=== PATIENT | female | born 1990 | race Caucasian/White ===

== ENCOUNTER 2018-02-24 19:45 | Inpatient (IN) | payer OTHER ==
[2018-02-24] MEDS ORDERED: OXYTOCIN/RINGERS LACTATE 1,000 ML IV PRN (22:57)
[2018-02-24] MEDS ORDERED: AMMONIA AROMATIC 1 EACH AMP IH PRN (22:57)
[2018-02-24] MEDS ORDERED: OLIVE OIL 118 ML BTL MISC PRN (22:57)
[2018-02-24] MEDS ORDERED: MISOPROSTOL 200 MCG TAB PO PRN (22:57)
[2018-02-24] MEDS ORDERED: LIDOCAINE 1% 300 MG/30 ML SDV SC PRN (22:57)
[2018-02-24] MEDS ORDERED: LR 1,000 ML IV PRN (22:57)
[2018-02-24] MEDS ORDERED: EPSOM SALT 454 GM TP PRN (22:57)
[2018-02-24] MEDS ORDERED: TERBUTALINE SULFATE 1 MG/ML VIAL IV PRN (22:57)
[2018-02-24] MEDS ORDERED: IBUPROFEN 600 MG TAB PO PRN (22:57)
[2018-02-24] MEDS ORDERED: MISOPROSTOL 200 MCG TAB ONE (23:29)
[2018-02-24] MEDS ORDERED: AMMONIA AROMATIC 1 EACH AMP IH ONE (23:29)
[2018-02-24] MEDS ORDERED: OXYTOCIN 10 UNIT/ML VIAL ONE (23:29)
[2018-02-24] MEDS ORDERED: OLIVE OIL 118 ML BTL ONE (23:29)
[2018-02-24] MEDS ORDERED: LIDOCAINE 1% 300 MG/30 ML SDV ONE (23:29)
[2018-02-24] MEDS ORDERED: TERBUTALINE SULFATE 1 MG/ML VIAL ONE (23:29)
[2018-02-25 00:10] LABS: PLATELET COUNT 217 10^3/uL (150-400)
--- NOTE | 2018-02-25 01:58 | PDGENHP ---
History and Physical - Chief Complaint contractions - History of Present Illness 27 G1 at 40w3d by LMP c/w 10 week US, with onset of contractions around 1700. No LOF, no VB, no ssx PIH. Desires natural childbirth. FOC: Ariel, and pt's mother, from [facility] is also here. has been uncomplicated. care with [facility]. 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 CV - RRR chest - CTAB abd - gravid, soft, fundus NT when not stephen ext - trace BLE edema, no calf tenderness SVE on arrival was 3/80/-2 at 2050, then at 2300 was 4.5/90/-2. Started using nitrous On my exam at 0130 6/90/-1 FHR 120 reactive initially. Has been followed with intermittent auscultation after initial NST toco - q 2-3 min Imp: 27 yo G1 at 40w3d in active labor. Plan: OK with nitrous and epidural if desired. Expectant mgmt for now. Leidy Mcdaniels MD, FACOG [facility] History Information - Allergies/Home Medication List Allergies/Adverse Reactions: No Known Allergies Allergy (Unverified 02/24/18 20:11) Home Medications: 02/24/18 [Last Taken 02/24/18 0900] I have personally reviewed and updated: family history, medical history, social history, surgical history Past Medical History: recurrent UTIs - Surgical History Additional surgical history: wisdom teeth age 15 - Family History Positive for: cancer (colon mAunt 60s, breast MGM 70s) - Social History Smoking Status: Never smoked Alcohol Use: None Drug Use: None Review of Systems Review of Systems: Physical Exam Physical Exam: Lab Data & Imaging Review 02/24/18 23:48 WBC 13.59 10^3/uL (3.80-9.50) H 02/24/18 23:48 RBC 4.11 10^6/uL (4.18-5.33) L 02/24/18 23:48 Hgb 13.4 g/dL (12.6-16.3) 02/24/18 23:48 Hct 37.4 % (38.0-47.0) L 02/24/18 23:48 MCV 91.0 fL (81.5-99.8) 02/24/18 23:48 MCH 32.6 pg (27.9-34.1) 02/24/18 23:48 MCHC 35.8 g/dL (32.4-36.7) 02/24/18 23:48 RDW 11.8 % (11.5-15.2) 02/24/18 23:48 Plt Count 217 10^3/uL (150-400) 02/24/18 23:48 MPV 11.3 fL (8.7-11.7) 02/24/18 23:48 Neut % (Auto) 79.0 % (39.3-74.2) H 02/24/18 23:48 Lymph % (Auto) 15.1 % (15.0-45.0) 02/24/18 23:48 [place] % (Auto) 5.1 % (4.5-13.0) 02/24/18 23:48 Eos % (Auto) 0.3 % (0.6-7.6) L 02/24/18 23:48 Baso % (Auto) 0.1 % (0.3-1.7) L 02/24/18 23:48 Nucleat RBC Rel Count 0.0 % (0.0-0.2) 02/24/18 23:48 Absolute Neuts (auto) 10.73 10^3/uL (1.70-6.50) H 02/24/18 23:48 Absolute Lymphs (auto) 2.05 10^3/uL (1.00-3.00) 02/24/18 23:48 Absolute Monos (auto) 0.69 10^3/uL (0.30-0.80) 02/24/18 23:48 Absolute Eos (auto) 0.04 10^3/uL (0.03-0.40) 02/24/18 23:48 Absolute Basos (auto) 0.02 10^3/uL (0.02-0.10) 02/24/18 23:48 Absolute Nucleated RBC 0.00 10^3/uL (0-0.01) 02/24/18 23:48 Immature Gran % 0.4 % (0.0-1.1) 02/24/18 23:48 Immature Gran # 0.06 10^3/uL (0.00-0.10) 02/24/18 23:48 Patient ABO/Rh AB POSITIVE 02/24/18 23:48 Antibody Screen NEGATIVE 02/24/18 23:48
[2018-02-25] MEDS ORDERED: BUPIVACAINE 0.25% 30 ML SDV ONE (02:34)
[2018-02-25] MEDS ORDERED: fentaNYL 2MCG/ML/BUP 0.1% RTU 100 ML BAG EP ONE (02:36)
[2018-02-25] MEDS ORDERED: ONDANSETRON 4 MG/2 ML VIAL IVP PRN (03:09)
[2018-02-25] MEDS ORDERED: NALOXONE HCL 0.4 MG/ML INJ IVP PRN (03:09)
[2018-02-25] MEDS ORDERED: METOCLOPRAMIDE 10 MG/2 ML VIAL IVP PRN (03:09)
[2018-02-25] MEDS ORDERED: PHENYLEPHRINE HCL 100 MCG/ML SYR IVP PRN (03:09)
--- NOTE | 2018-02-25 03:12 | PREANESOB ---
Obstetric Pre-Anesthesia Info - General Info : 1 Para: 0 JOSÉ MANUEL: [birth year] Gestational Age: 40 week(s) and 2 day(s) - Info Status: Full Term - Labor Status Cervical Dilation per last OB SVE: 6 Labor Epidural: Yes Anesthesia Allergies/Adverse Reactions: Allergy/AdvReac Type Severity Reaction Status Date / Time No Known Allergies Allergy Unverified 02/24/18 20:11 Home Medications: Medication Instructions Recorded 02/24/18 Visit Medications: Generic Name Dose Route Start Last Admin Trade Name Freq PRN Reason Stop Dose Admin Ammonia (Aromatic Spirit) 1 each 02/24/18 22:57 Ammonia Aromatic IH 03/06/18 22:56 ONCE PRN Fainting Lactated Ringer's 1,000 mls @ 0 mls/hr 02/24/18 22:57 Lr IV 02/25/18 22:56 PRN PRN SEE PROTOCOL CONDITIONS Protocol Per Protocol Oxytocin/Lactated Ringer's 1,000 mls @ 0 mls/hr 02/24/18 22:57 Pitocin 20 Units/Lr (Premix) IV PRN PRN Post bleeding Per Protocol Ibuprofen 600 mg 02/24/18 22:57 Motrin PO ONCE PRN post , pain Lidocaine HCl 300 mg 02/24/18 22:57 Lidocaine Hcl 1% SC 08/23/18 22:56 ONCE PRN episiotomy Magnesium Sulfate 454 gm 02/24/18 22:57 Epsom Salt TP 08/23/18 22:56 Q1H PRN perineal discomfort Misoprostol 800 - 1,000 mcg 02/24/18 22:57 Cytotec PO 08/23/18 22:56 ONCE PRN Vaginal Atony/Bleeding [place] Oil 118 ml 02/24/18 22:57 Sweet Oil MISC 08/23/18 22:56 ONCE PRN perineal massage Terbutaline Sulfate 0.25 mg 02/24/18 22:57 Brethine IV 08/23/18 22:56 ONCE PRN Tachysystole Discontinued Medications Generic Name Dose Route Start Last Admin Trade Name Freq PRN Reason Stop Dose Admin Ammonia (Aromatic Spirit) Confirm 02/24/18 23:29 Ammonia Aromatic Administered 02/24/18 23:30 Dose 1 each IH .STK-MED ONE Bupivacaine HCl Confirm 02/25/18 02:34 Sensorcaine 0.25% Sdv Administered 02/25/18 02:35 Dose 30 ml .ROUTE .STK-MED ONE Fentanyl/Bupivacaine HCl Confirm 02/25/18 02:36 Fentanyl/Bupivacaine/Ns 2 Mcg/Ml 0.1% (Premix Administered 02/25/18 02:37 Dose 100 ml EP .STK-MED ONE Lidocaine HCl Confirm 02/24/18 23:29 Lidocaine Hcl 1% Administered 02/24/18 23:30 Dose 300 mg .ROUTE .STK-MED ONE Misoprostol Confirm 02/24/18 23:29 Cytotec Administered 02/24/18 23:30 Dose 1,000 mcg .ROUTE .STK-MED ONE Kabetogama Oil Confirm 02/24/18 23:29 Sweet Oil Administered 02/24/18 23:30 Dose 118 ml .ROUTE .STK-MED ONE Oxytocin Confirm 02/24/18 23:29 Pitocin Administered 02/24/18 23:30 Dose 40 unit .ROUTE .STK-MED ONE Terbutaline Sulfate Confirm 02/24/18 23:29 Brethine Administered 02/24/18 23:30 Dose 1 mg .ROUTE .STK-MED ONE - Vital Signs Height/Weight (Nursing): Height 173 cm - Focused Exam Mallampati Score: Class 2 Labs: 02/24/18 23:48 Patient ABO/Rh AB POSITIVE 02/24/18 23:48 - Plan Consent Signed and on Chart: Yes Patient/Guardian Understands and Agrees to Plan: Yes Urgent/Emergent Case: Andrea staples completed preop but documented later for safe timely pt care
[2018-02-25] MEDS ORDERED: LR 500 ML IV SCH (03:30)
[2018-02-25] MEDS ORDERED: fentaNYL 2MCG/ML/BUP 0.1% RTU 100 ML EP SCH (03:30)
[2018-02-25] MEDS ORDERED: ACETAMINOPHEN 650 MG/20.3 ML UDCUP PO PRN (03:33)
--- NOTE | 2018-02-25 03:33 | OBPROG ---
Labor Progress Note Assessment/Plan: Assessment:27 G1 at 40w3d in active labor, now s/p epidural, with headache immediately after epidural, now starting to resolve. Currently no desire to push. Plan: Will allow passive descent and recheck when pt feeling urge to push. Tylenol prn for headache. Leidy [facility]cdaniels MD, [facility] 02/25/18 03:30 Subjective/Intrapartum Course: 02/25/18 03:32 Pt with ADAMS immediately after epidural, though starting to resolve now. No longer has urge to push since epidural placed. Objective: 02/24/18 23:48 Patient ABO/Rh AB POSITIVE 02/24/18 23:48 - SVE Dilation (cm): 9 Effacement (%): 100 Station: 0 - Contraction Pattern Assessment Current Contraction Pattern: Regular - FHR Assessment Chan FHR (bpm): 120 (had 2 decels to 70s x 1 min shortly after epidural placed, has now returned to baseline) FHR Pattern Variability: Moderate FHR Category: 2 Oxytocin Orders Assessment - Pre-Induction/Augmentation Assessment Gestational Age: 40 week(s) and 2 day(s) ICD10 Worksheet Patient Problems: Problems Problem Status Onset Supervision of normal Acute Supervision of normal Acute - ICD10 Problem Qualifiers (1) Supervision of normal (2) Supervision of normal Qualifiers: Normal : normal first Trimester: third trimester Qualified Code(s): Z34.03 - Encounter for supervision of normal first , third trimester
[2018-02-25] MEDS ORDERED: ACETAMINOPHEN 325 MG TAB PO PRN (03:46)
[2018-02-25] MEDS ORDERED: SIMETHICONE 80 MG TAB CHEW PO PRN (06:58)
[2018-02-25] MEDS ORDERED: HYDROCORTISONE 0.5% CREAM TP PRN (06:58)
--- NOTE | 2018-02-25 07:04 | OBDEL ---
Info Type: Primary Presentation at Delivery: Vertex L&D Analgesia/Anesthesia Type: Epidural GBS+: No Intrapartum Medications: Generic Name Dose Route Start Last Admin Trade Name Freq PRN Reason Stop Dose Admin Fentanyl/Bupivacaine HCl 100 mls @ 0 mls/hr 02/25/18 03:30 02/25/18 03:46 Fentanyl/Bupivacaine/Ns 2 Mcg/Ml 0.1% (Premix EP 03/07/18 03:29 100 mls CONT YARELI Administration Protocol As Directed Discontinued Medications Generic Name Dose Route Start Last Admin Trade Name Freq PRN Reason Stop Dose Admin Acetaminophen 650 mg 02/25/18 03:33 02/25/18 03:45 Tylenol 650/20.3ml Oral Liquid PO 08/24/18 03:32 650 mg Q4HRS PRN Administration Pain, Mild/Fever, Can Take PO - Infant Care Provider Nurse Assessor/DOLL DRESSER: Evelyn Davis - Hospital Course Intrapartum: 02/25/18 03:32 Pt with ADAMS immediately after epidural, though starting to resolve now. No longer has urge to push since epidural placed. Indications for Delivery: Spontaneous Labor Vaginal Delivery - Delivery Provider Delivery Physician/CNM: Leidy Mcdaniels - Labor and Delivery Onset of Contractions Date: 02/24/18 Onset of Contractions Time: 17:00 Onset of Contractions Type: Spontaneous Rupture of Membranes Date: 02/25/18 Rupture of Membranes Time: 05:55 Rupture of Membranes Type: Artificial Amniotic Fluid Color: Meconium Stained Dilation Complete Date: 02/25/18 Dilation Complete Time: 05:15 Placenta Delivery Date: 02/25/18 Placenta Delivery Time: 06:41 Total Hours of Labor: 13 Non-surgical Procedures: Amniotomy Laceration: 1st Degree, Other (Specify) (bilateral periurethral) Repair: 3-0, Vicryl Vaginal Sponge Count Correct: Yes Vaginal Needle Count Correct: Yes Vaginal Sweep Performed: Yes EBL: 300 Delivery Events: None Delivery Comment: Pt arrived in spont labor. Used Nitrous oxide to cope with contractions until she was about 6 cm dilated. She then received an epidural and rapidly progressed to complete dilation. After pushing for over 30 min, AROM was performed - meconium stained. She pushed for a total of 1 hr 15 min. Delivery of vertex from CHILANGO position. Nuchal cord x 3 reduced on the perineum. With gentle downward traction on the vertex, easy delivery of right anterior shoulder and remainder of body. Delivered right to maternal abdomen. Delayed cord clamping x 90 sec. DOLL DRESSER present for delivery. Cord clamped and cut. Bilateral periurethral lacerations and a small 1st degree laceration were repaired with 3.0 Vicryl. Placenta then delivered spontaneously. EBL 300ml. Infant and patient left in room with RN, all doing well. Data JOSÉ MANUEL: 02/[birth year]/18 Gestational Age: 40 week(s) and 3 day(s) Chan Delivery Date: 02/25/18 Delivery Time: 06:29 Sex of : Female Score (1 Min): 8 Score (5 Min): 9 ICD10 Worksheet Patient Problems: Problems Problem Status Onset Supervision of normal Acute Supervision of normal Acute Vaginal delivery Acute Vaginal delivery Acute - ICD10 Problem Qualifiers (1) Supervision of normal (2) Supervision of normal Qualifiers: Normal : normal first Trimester: third trimester Qualified Code(s): Z34.03 - Encounter for supervision of normal first , third trimester (3) Vaginal delivery (4) Vaginal delivery
--- NOTE | 2018-02-25 07:21 | POSTANESTH ---
Post Anesthetic Evaluation Cardiovascular Status: Normal, Stable Respiratory Status: Normal, Stable Level of Consciousness/Mental Status: Can Participate in Eval Pain Control: Adequate, Prn Tx Ordered Nausea/Vomiting Control: Adequate, Prn Tx Ordered Complications Possibly Related to Anesthesia: None Noted
[2018-02-25] MEDS: IBUPROFEN 600 MG TAB PO SCH ×3 (07:33→22:47)
[2018-02-25] MEDS: ACETAMINOPHEN 325 MG TAB PO SCH ×3 (11:31→23:36)
[2018-02-25] MEDS: DOCUSATE SODIUM 100 MG CAP PO PRN (22:47)
[2018-02-26] MEDS: ACETAMINOPHEN 325 MG TAB PO SCH ×3 (05:52→15:38)
[2018-02-26] MEDS: IBUPROFEN 600 MG TAB PO SCH ×3 (06:21→18:53)
[2018-02-26] MEDS: DOCUSATE SODIUM 100 MG CAP PO PRN (08:41)
--- NOTE | 2018-02-26 09:13 | OBPP ---
Progress Note Assessment/Plan: Assessment:27 G1 at 40w3d in active labor, now s/p epidural, with headache immediately after epidural, now starting to resolve. Currently no desire to push. Plan: Will allow passive descent and recheck when pt feeling urge to push. Tylenol prn for headache. Leidy Mcdaniels MD, [facility] 02/25/18 03:30 A/P: 27 G1 PPD#1 doing well. Continue routine pp cares. Anticipate dc home tomorrow. Leidy Mcdaniels MD, [facility] Subjective/ Course: Pt doing well. going well though nipples are a little sore. Ambulating and voiding without difficulty. Mod lochia. 02/26/18 10:28 Objective: 02/26/18 06:25 Patient ABO/Rh AB POSITIVE 02/24/18 23:48 Temp Pulse Resp BP Pulse Ox 36.6 C 73 14 119/79 94 02/26/18 07:37 02/26/18 07:37 02/26/18 07:37 02/26/18 07:37 02/26/18 07:37 gen- pleasant, NAD CV - RRR chest - CTAB abd - fundus firm at u-1, NT, + NABS perineum - intact, some posterior labial edema, sutures intact ext - calves NT, trace edema Uterine Position/Fundal Height: Umbilicus -1 Uterine Tone: Firm
[2018-02-27] MEDS: ACETAMINOPHEN 325 MG TAB PO SCH ×3 (00:40→11:27)
[2018-02-27] MEDS: IBUPROFEN 600 MG TAB PO SCH ×3 (04:26→11:27)
[2018-02-27 07:39] VITALS: BP 117/84
--- NOTE | 2018-02-27 09:42 | OBGCSDC ---
General Delivery Information - General Info : 1 Para: 1 Abortions: 0 Type: Primary L&D Analgesia/Anesthesia Type: Epidural Admission Date: 02/25/18 Labs: Patient ABO/Rh AB POSITIVE 02/24/18 23:48 Hct 35.0 % (38.0-47.0) L 02/26/18 06:25 - Hospital Course Intrapartum: 02/25/18 03:32 Pt with ADAMS immediately after epidural, though starting to resolve now. No longer has urge to push since epidural placed. : Pt doing well. going well though nipples are a little sore. Ambulating and voiding without difficulty. Mod lochia. 02/26/18 10:28 Vaginal - Delivery Provider Delivery Physician/CNM: Leidy Mcdaniels - Diagnosis Labor: Spontaneous Rupture of Membranes Type: Artificial Amniotic Fluid Color: Meconium Stained Laceration: 1st Degree, Other (Specify) (bilateral periurethral) Repair: 3-0, Vicryl Delivery Events: None - Procedures Non-surgical Procedures: Amniotomy - Delivery Non-surgical Procedures: Amniotomy EBL: 300 Data JOSÉ MANUEL: 02/22/18 Gestational Age: 40 week(s) and 5 day(s) Chan Delivery Date: 02/25/18 Delivery Time: 06:29 Sex of Infant: Female Weight (gm): 3440 kg Score (1 Min): 8 Score (5 Min): 9 Discharge Information - Discharge Information Prescriptions: Hydrocodone/APAP 5/325 [[place] 5/325 (*)] 1 tab PO Q6HRS #15 tab Condition: Good Instruction/Follow Up: See Instruction Sheet, Four Weeks, Six Weeks
--- NOTE | 2018-02-27 09:42 | OBPP ---
Progress Note Assessment/Plan: Assessment: 27 yo now , PPD1 s/p . Doing great - ready for home. Would like script for narc's if needed. TIFFANIE Subjective/ Course: Feeling great, ready for home. BF going well. Would like flu shot before dc. Objective: 02/26/18 06:25 Patient ABO/Rh AB POSITIVE 02/24/18 23:48 Temp Pulse Resp BP Pulse Ox 36.6 C 75 16 117/84 H 96 02/27/18 07:38 02/27/18 07:38 02/27/18 07:38 02/27/18 07:38 02/27/18 07:38 Uterine Position/Fundal Height: At Umbilicus Uterine Tone: Firm
== END 2018-02-27 12:00 | disposition home or self-care (01) | DRG 775 ==
LOC: FLD 19:45 → FOB 02-25 08:44 → OBSVTOIN 02-25 09:58
PROVIDERS: ADMIT Hospitalist; ATTEND Hospitalist
PROC: 10907ZC Drainage of Amniotic Fluid, Therapeutic from Products of Conception, Via Natural or Artificial Opening (ICD-10-PCS; principal; 2018-02-25)
PROC: 10E0XZZ Delivery of Products of Conception, External Approach (ICD-10-PCS; principal; 2018-02-25)
PROC: 0HQ9XZZ Repair Perineum Skin, External Approach (ICD-10-PCS; principal; 2018-02-25)
DX: O70.0 First degree perineal laceration during delivery (principal); Z37.0 Single live birth; Z3A.40 40 weeks gestation of pregnancy; O69.82X0 Labor and delivery complicated by other cord entanglement, without compression, not applicable or unspecified; Z23 Encounter for immunization
CPT/HCPCS: G0008; J2590; J3105